=== PATIENT | female | born 1980 | race Caucasian/White ===

== ENCOUNTER 2020-01-21 21:06 | Inpatient (IN) | payer OTHER, SELFPAY ==
[2020-01-22 00:19] VITALS: BMI 16.6
[2020-01-22] MEDS ORDERED: Ondansetron PF 4 MG/2 ML Vial IVP PRN (00:47)
[2020-01-22] MEDS ORDERED: Calcium Carbonate 500 MG ChewTAB PO PRN (00:47)
[2020-01-22] MEDS ORDERED: Morphine 4 MG/ML VIAL SLOW IVP SCH (01:00)
[2020-01-22] MEDS: HYDROcodone/Acetaminophen 5/325 mg Tablet PO PRN ×4 (01:30→20:59)
[2020-01-22] MEDS: Ibuprofen 600 MG TAB PO PRN ×4 (01:30→21:00)
[2020-01-22] MEDS: Lactated Ringer's 1,000 ML IV SCH ×2 (01:31→21:14)
--- NOTE | 2020-01-22 02:15 | HP ---
HISTORY OF PRESENT ILLNESS: The patient is a 39-year-old multiparous female who presented to an outside emergency room with exacerbation of abdominal and pelvic pain. During their evaluation, there was concern that she had PID and was transferred here for evaluation and treatment. The patient was given a dose of cefoxitin and doxycycline, 4 mg of morphine, and 30 mg of Toradol. Upon arrival here to the hospital, the patient reported that this pain has been worsening over the last couple of months and just became very bad in the last couple of days to the point that the patient was tearful because of the intensity of the pain. The patient also reports that she has been having a discharge, that she was attributing to her irregular bleeding. She denies fever or chills or rigors. She uses tampons, but denies having tampons for an excessive period of time. She denies intercourse or anything placed vaginally. Patient does report she takes baths. Also reports that she douches on occasion. The patient denies fever, headache, chest pain, shortness of breath, nausea, vomiting, diarrhea, constipation, hip problems, knee problems, muscle weakness, urinary urgency and frequency. PAST MEDICAL HISTORY: Reports complication to her last , that she had excessive amount of bleeding requiring emergency at around seven months. 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 Prior to that, the patient reports monthly periods excessive in duration and amount and associating severe pain. PAST SURGICAL HISTORY: She has had a section. She has also had tubal ligation. SOCIAL HISTORY: Denies alcohol use or drug use. She smokes about a half pack per day. ALLERGIES: NO KNOWN DRUG ALLERGIES. FAMILY HISTORY: Her mother has a history of endometriosis. MEDICATIONS: None at home; in the emergency room per HPI. PHYSICAL EXAMINATION: VITAL SIGNS: Blood pressure 118/81, temperature 98.9, pulse of 95, respiratory rate of 18, saturating 97% on room air. GENERAL: She appears to be in visible discomfort rubbing her back and rocking due to the pain that she is experiencing. She otherwise does not appear to be in any acute distress. LUNGS: Clear to auscultation bilaterally. HEART: Regular rate and rhythm. ABDOMEN: Soft. PELVIC: Vulva is without masses, lesions, or erythema. On speculum exam, vagina is moist. There is a dirty dishwater-appearing discharge present. The speculum is causing significant amount of pain with placement up against the cervix. Of note, the patient has no perineal body. She appears to have an extensive laceration at one of her previous deliveries. Rectal exam was not performed. However, there appears to be no intact sphincter circumferentially around the anus and only a small piece of thin skin between the vagina and the anus. Upon observation of this point, patient does report she has some gas incontinence. On cervical exam, the patient is exquisitely tender. Cervical motion tenderness and uterine tenderness. LABORATORY DATA: White count of 14.2, hemoglobin 12.2, hematocrit 40.6, and platelets of 335,000. Neutrophils percentage 63%. Urine shows specific gravity of 1.025, 15 ketones, trace blood, positive nitrites, small leukocyte esterase, 7-10 white blood cells, 0 to 3 squamous cells, 3+ bacteria. Negative test. Sodium 139, potassium 3.5, creatinine 0.69, lactic acid 1.0, calcium 9.6, AST of 11, ALT of 8. ASSESSMENT AND PLAN: The patient is a 39-year-old female with what appears to be endometritis. The patient by history has very few risk factors for this. However, her symptomatology by physical exam is quite severe. The patient is going to be treated for PID with cefoxitin and doxycycline and will be treated with pain medication for pain control. The patient will be observed over the next 24-48 hours for improvement of pain. Transvaginal ultrasound has been ordered for further evaluation. Her pain may be exacerbated by undiagnosed endometriosis, but she has been experiencing more intense. She is also having irregular periods that may or may not be related to any abnormal findings on the ovaries, which we will examine by ultrasound. These matters can best be evaluated as an outpatient. GC, chlamydia, and VPIII were ordered at the outside facility. We have added just aerobic and anaerobic culture given the odor and the nature of this discharge. Job ID: [id number]
[2020-01-22] MEDS: cefOXitin Sodium/Dextrose,Iso 2 GM in Premix Bag 1 BAG IVPB SCH ×3 (06:08→17:33)
--- NOTE | 2020-01-22 07:54 | ULT ---
TRANSABDOMINAL TRANSVAGINAL PELVIC ULTRASOUND: INDICATION: History of sharp pelvic pain that radiates into the back for many months with irregular vaginal bleed ing and constipation. COMPARISON: Prior CT of the abdomen and pelvis dated 01/21/2020. TECHNIQUE: Royal scale, color Doppler and spectral Doppler images were obtained of the pelvis via transabdominal transvaginal approach. FINDINGS: The uterus measures 8.9 x 5.4 x 6.6 cm. The endometrial stripe measures 4.9 mm. There is gas presen t within the endometrial canal as seen on the comparison CT. Gas is present within the level of the endocervical canal and within the upper vagina. The right ovary measures 2.8 x 2.6 x 2.7 cm. There is a 2.5 cm cyst within the right ovary. There i s normal flow to the right ovary. The left ovary measures 2.6 x 1.4 x 2.2 cm. There is a 1.2 cm cyst in the left ovary. There is norm al flow to the left ovary. No free fluid is evident. IMPRESSION: 1. Nonspecific gas present within the endometrial canal and endocervical canal as well as the upper vaginal may reflect sequelae of recent instrumentation or trauma. Gas producing bacterial infection could produce this finding. 2. Small bilateral follicular cysts. POS: BH
[2020-01-22] MEDS: Famotidine 20 MG TAB PO SCH ×2 (07:58→20:59)
--- NOTE | 2020-01-22 08:31 | PRG ---
DATE OF SERVICE: 01/22/2020 SUBJECTIVE: The patient is hospital day #1, admitted for endomyometritis and placed on cefoxitin and doxycycline. The patient has findings suggesting this included elevated white count, gas in intrauterine on CT scan, exquisite tenderness on bimanual exam, significant discharge, foul smelling. This morning, the patient reports that she has continued having pain, but she was able to sleep last night, which was an improvement for her. She is otherwise tolerating a diet, ambulating, and voiding on her own. Blood pressures this morning include a blood pressure of 93/56, temperature 98.4, pulse of 88, respiratory rate of 16, saturating 94 to 97% on room air. In general, she appears to be in no acute distress. She is alert, oriented, cooperative, and pleasant to interact with. ASSESSMENT AND PLAN: The patient is a 39-year-old female with endomyometritis. At the ER facilities, she had GC, chlamydia collected as well as VPIII. I am unable to find these results in the MAR at this time. She has a COVID test pending, and cultures collected yesterday, they are also pending. We will anticipate to continue antibiotics for the next 1 to 2 days. Some of her pain by history may be associated by something other than infection as she has a family history of endometriosis and has a personal history of significant severe dysmenorrhea. A transvaginal ultrasound report is still pending. Job ID: [id number]
[2020-01-22] MEDS: Doxycycline 100 MG CAP PO SCH ×2 (12:13→21:00)
[2020-01-22 12:50] LABS: SARS-CoV-2 MS2 Positive; SARS-CoV-2 N Gene Negative; SARS-CoV-2 S Gene Negative; SARS-CoV-2 by NAA Not Detected (NotDetected); SARS-CoV-2 orf1ab Negative
[2020-01-23] MEDS: cefOXitin Sodium/Dextrose,Iso 2 GM in Premix Bag 1 BAG IVPB SCH ×4 (00:39→17:09)
[2020-01-23] MEDS: HYDROcodone/Acetaminophen 5/325 mg Tablet PO PRN ×4 (00:47→18:35)
--- NOTE | 2020-01-23 01:57 | PDOC.EVN ---
Event Note - Event Note Event Note: Mefoxin/Doxycycline #2 Feels some better. VSS AF since admit. Abdomen is soft, tender only to deep palpation. Genital culture is pending. USG on admit showed gas within uterus. A/P: PID, improving on ABX. Would continue for total 48-72 hrs then home on PO Doxycycline x 10 days.
[2020-01-23] MEDS: Ibuprofen 600 MG TAB PO PRN ×3 (05:54→18:35)
[2020-01-23] MEDS: Doxycycline 100 MG CAP PO SCH ×2 (08:36→21:23)
[2020-01-23] MEDS: Famotidine 20 MG TAB PO SCH ×2 (08:36→21:23)
[2020-01-23] MEDS: Lactated Ringer's 1,000 ML IV SCH (11:28)
[2020-01-23] MEDS ORDERED: Sodium Chloride 0.9% 10 ML ONE (22:42)
[2020-01-24] MEDS: Zolpidem Tartrate 5 MG TAB PO PRN (00:44)
[2020-01-24] MEDS: Ibuprofen 600 MG TAB PO PRN ×2 (00:44→06:22)
[2020-01-24] MEDS: cefOXitin Sodium/Dextrose,Iso 2 GM in Premix Bag 1 BAG IVPB SCH ×4 (00:45→19:02)
[2020-01-24] MEDS: Acetaminophen 500 MG TAB PO PRN ×3 (00:45→17:12)
[2020-01-24 05:55] LABS: #Eosinphils 0.3 thou/uL (0.0-0.7); #Lymphocytes 3.3 thou/uL (1.20-3.40); #Monocytes 0.6 thou/uL (0.11-0.59); #Neutrophils 6.5 thou/uL (1.40-6.50); %Basophils 0.4 % (0.0-1.0); %Eosinophils 2.9 % (0.0-10.0); %Lymphocytes 30.6 % (21.0-51.0); %Neutrophils 60.1 % (42.0-75.0); Hemoglobin 9.9 g/dL (12.0-16.0); Mean Corpuscular HGB CONC 30.9 g/dL (32.0-36.0); Mean Corpuscular Hemoglobin 24.9 pg (27.0-31.0); Mean Corpuscular Volume 80.7 fL (78.0-98.0); Platelet Count 258 thou/uL (130-400); RBC Distribution Width 14.9 % (11.5-14.5); Red Blood Cell (RBC) Count 3.99 mill/uL (4.20-5.40); White Blood Cell (WBC) Count 10.8 thou/uL (4.8-10.8)
[2020-01-24] MEDS ORDERED: Sodium Chloride 0.9% 10 ML ONE ×3 (06:16→21:20)
--- NOTE | 2020-01-24 08:45 | PRG ---
DATE OF SERVICE: 01/24/2020 SUBJECTIVE: The patient is hospital day 3 for suspected PID. She has been on cefoxitin and doxycycline. Today, she has been about 72 hours of IV antibiotics tonight around 9 o'clock. The patient continues to report she has significant pain that is not covered by ibuprofen and Tylenol. The patient was witnessed yesterday, ambulating cheerfully to the [employer] and had a very quick change in affect from cheerful and complaining of pain to back to a normal affect of cheerfulness and no visible signs of significant pain. We did discuss that her pain is I do not believe completely related to her infection as we do believe she has a significant intrauterine infection as gas has been producing from that site and she is exquisitely tender on initial presentation. However, the patient has been also having this pain for several months, which is likely not completely related to infection. She does have a history of endometriosis in the family, has a history of significant dysmenorrhea. We did discuss this that she will need further evaluation as an outpatient that our main goal here is to get this infection under control. The patient reports that she has not had a bowel movement and was concerned about that. PHYSICAL EXAMINATION: VITAL SIGNS: Blood pressure 85/51 this morning supine, temperature 98.7, pulse is 76, respiratory rate of 20, saturating 99% on room air. GENERAL: The patient again initially appeared to be quite comfortable and so we started discussing her situation more and then became tearful and more dramatic about uncontrolled pain and that the pain is not improved. LABORATORY DATA: Her white count is at 10.8, down from 14.5; hemoglobin 9.9; hematocrit 32.2; platelets of 258,000. ASSESSMENT AND PLAN: We will be continuing her IV antibiotics through 72 hours. 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 We will reassess tomorrow. Job ID: [id number]
[2020-01-24] MEDS ORDERED: HYDROcodone/Acetaminophen 5/325 mg Tablet PO SCH (09:00)
[2020-01-24] MEDS: Doxycycline 100 MG CAP PO SCH ×2 (09:36→21:17)
[2020-01-24] MEDS: Famotidine 20 MG TAB PO SCH ×2 (09:37→21:17)
[2020-01-24] MEDS: Ketorolac Tromethamine 30 MG/ML VIAL IVP PRN ×2 (13:06→19:04)
[2020-01-25] MEDS ORDERED: Sodium Chloride 0.9% 10 ML ONE ×3 (00:25→06:34)
[2020-01-25] MEDS: cefOXitin Sodium/Dextrose,Iso 2 GM in Premix Bag 1 BAG IVPB SCH ×2 (00:59→06:41)
[2020-01-25] MEDS: Zolpidem Tartrate 5 MG TAB PO PRN (00:59)
[2020-01-25] MEDS: Ketorolac Tromethamine 30 MG/ML VIAL IVP PRN (01:00)
[2020-01-25] MEDS: Lactated Ringer's 1,000 ML IV SCH (02:29)
--- NOTE | 2020-01-25 05:16 | PDOC.EVN ---
Event Note - Event Note Event Note: Feeling much better. VSS AF Abdomen is soft, no guarding or rebound. Plan: DC IV ABX, DC home on Doxycycline 100 mg po BID x 10 days. F/U [facility] in 2 weeks.
[2020-01-25] MEDS: Acetaminophen 500 MG TAB PO PRN (05:29)
[2020-01-25] MEDS: Doxycycline 100 MG CAP PO SCH (11:21)
[2020-01-25] MEDS: Ibuprofen 600 MG TAB PO PRN (11:21)
[2020-01-25] MEDS: Famotidine 20 MG TAB PO SCH (11:22)
[2020-01-25 12:00] VITALS: BP 108/51; TEMP 98.8
--- NOTE | 2020-01-27 06:16 | PQF ---
CLINICAL DOCUMENTATION CLARIFICATION FORM: Dear : Remy Friend Date / Time: 01/27/2020 06:15 Please exercise your independent, professional judgment in responding to the clarification form. Clinical indicators are provided on the bottom of this form for your review Please check appropriate box(es): [ ] Protein Calorie Malnutrition: [ ] Mild [ ] Moderate [ ] Severe [ ] Other Malnutrition (please specify) __ [ ] Underweight without malnutrition [ ] Cachexia [ ] Other diagnosis [ x ] Unable to determine In addition, please specify: Present on Admission (POA): [x ] Yes [ ] No [ ] Unable to determine Physician Signature: Cindy Friend Date/Time: 01/27/2020 For continuity of documentation, please document condition throughout progress notes and discharge summary. Thank You. To be completed by CDI/Coding staff for physician review: Present Clinical Indicators - Signs / Symptoms / Labs Results and Location in Medical Record [x] BMI of 16.6 RD Consult 01/21 Two or More of the Following ASPEN Criteria: [x] Moderate deltoid muscle, mild interosseous muscle, mild temporalis muscle and mild orbital fat pad wasting RD Consult 01/21 [x] suggestive of severe malnutrition in the context of chronic illness RD Consult 01/21 Present Risk Factors Results and Location in Medical Record [x] Endomyometritis PN 01/21 Present Treatments [x] Dietary consult RD Consult 01/21 [x] Continue regular diet RD Consult 01/21 [x] Ensure RD Consult 01/21 [x] Monitor weight loss RD Consult 01/21 [x] Monitor total protein intake RD Consult 01/21 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 Energy Intake: <75% of estimated energy requirement for > 7 days ? Weight Loss: 1-2%/1 week; 5%/ 1 month; 7.5%/3 months ? Other: mild body fat loss; mild muscle mass loss; mild fluid accumulation; Severe Malnutrition (in acute illness) ? Energy Intake: ? 50% of estimated energy requirement for ? 5 days ? Weight Loss: >2%/1 week; >5%/1 month; >7.5%/3 months ? Other: moderate body fat loss; moderate muscle mass loss; moderate- severe fluid accumulation; measurably reduced fish bait picker strength Moderate Malnutrition (in chronic illness) ? Energy Intake: <75% of estimated energy requirement for ?1 month ? Weight Loss: 5%/1 month; 7.5%/3 months; 10%/6 months; 20%/1 year ? Other: mild body fat loss; mild muscle mass loss; mild fluid accumulation Severe Malnutrition (in chronic illness) ? Energy Intake: ?75% of estimated energy requirement for ?1 month ? Weight Loss: >5%/1 month; >7.5%/3 months; >10%/6 months; >20%/1 year ? Other: severe body fat loss; severe muscle mass loss; severe fluid accumulation; measurably reduced fish bait picker strength This is a permanent part of the Medical Record MTDD
== END 2020-01-25 11:37 | disposition home or self-care (01) | DRG 759 ==
LOC: OBSVTOIN 21:08 → 3SE 21:08
PROVIDERS: ADMIT Obstetrics & Gynecology; ATTEND Obstetrics & Gynecology
DX: N71.9 Inflammatory disease of uterus, unspecified (principal); Z20.828 Contact with and (suspected) exposure to other viral communicable diseases; Z98.51 Tubal ligation status
CPT/HCPCS: 36415; 76856; 85025; 87070; 87635; J0694; J1885; J2270; U0003